=== PATIENT | female | born 1955 | race Caucasian/White ===

== ENCOUNTER 2018-07-20 10:03 | Emergency (ER) | payer MEDICARE, OTHER ==
[~2018-07-20] VITALS: Ht 160 cm; Wt 98.0 kg
[~2018-07-20 10:03] MED LIST: ASPIRIN325 PO; COLACE100 MG PO; FISH OIL 1,001000 M2 PO; HYDROCODONE-APA1 TA1 PO; LIDODERM 5%1 PATC1 TOP; MAGNESIUM OXID400 MG PO; NORVASC10 MG PO; OXYCODONE HCL5 M1 PO; PROTONIX40 M1 PO; SERTRALINE HCL50 MG PO; XARELTO10 MG PO; ZOCOR20 MG PO
[2018-07-20] MEDS ORDERED: PROBIOTIC1 EAC1 PO (10:15)
[2018-07-20] MEDS ORDERED: TUMERIC (10:15)
[2018-07-20] MEDS ORDERED: PREVICID (10:15)
[2018-07-20] MEDS ORDERED: VITAMINC500 PO (10:16)
[2018-07-20] MEDS ORDERED: VITAMIN B-12500 MCG PO (10:16)
[2018-07-20] MEDS ORDERED: VOLTAREN GEL 1100 G2 (10:16)
[2018-07-20 11:27] LABS: ABSOLUTE EOSINOPHILS 0.3 thou/uL (0.0-0.7); ABSOLUTE LYMPHOCYTES 2.1 thou/uL (0.8-5.3); ABSOLUTE MONOCYTES 1.1 thou/uL (0.0-1.2); BASOPHILS 0.2 %; EOSINOPHILS 2.2 %; HEMATOCRIT 43.2 % (37.0-47.0); HEMOGLOBIN 14.4 gm/dL (12.0-15.0); LYMPHOCYTES 15.3 %; MCH 30.6 pg (26.0-34.0); MCHC 33.3 g/dL (28.0-37.0); MCV 91.8 fL (80.0-100.0); MONOCYTES 8.5 %; MPV 9.7 fl. (7.2-11.1); NUCLEATED RBCS 0 /100WBC; PLATELET COUNT* 192 thou/uL (150-400); POLYS 73.8 %; RBC 4.71 mil/uL (4.20-5.00); RDW-CV 13.7 % (10.5-14.5); WBC 13.6 thou/uL (4.0-11.0)
[2018-07-20 11:36] LABS: CALCIUM 9.4 mg/dL (8.5-10.1); CREATININE 1.1 mg/dL (0.6-1.3); POTASSIUM 4.3 mmol/L (3.5-5.1)
[2018-07-20 11:40] LABS: ALBUMIN 3.3 g/dL (3.4-5.0); TOTAL BILIRUBIN 0.5 mg/dL (<0.1-1.0); TOTAL PROTEIN 6.6 g/dL (6.4-8.2)
[2018-07-20] MEDS ORDERED: LEVAQUIN 500 M500 MG PO (12:03)
[2018-07-20] MEDS ORDERED: ANTIVERT25 MG PO (12:03)
[2018-07-20 12:22] VITALS: BP 135/74
--- NOTE | 2018-07-20 14:13 | EKG ---
[place] [address] ELECTROCARDIOGRAM REPORT Name: TRINIDAD AMARAL Room: [facility]#: [id number] Admission: 07/20/18 Attend Phys: Discharge: 07/20/18 Date of : 57 Report #: [id number] THIS REPORT FOR: //name// [facility] ED Test Date: 2018-07-20 Test Time: 10:41:00 Pat Name: TRINIDAD AMARAL Department: Room: Gender: F Sales Support Associate: MARYELLEN : 1955 Requested By: Emili Gardner Order Number: [id number] MD: Zenon Finnegan Measurements Intervals [place] Rate: 90 P: 40 [place]: 143 QRS: -11 QRSD: 98 T: 64 QT: 355 QTc: 435 Interpretive Statements Sinus rhythm Multiple ventricular premature complexes Left ventricular hypertrophy Compared to ECG 03/17/2017 07:56:08 Ventricular premature complex(es) now present Left ventricular hypertrophy now present Electronically Signed On 07-20-2018 14:13:29 COAL INSPECTOR by Zenon Finnegan [email or web address] <ELECTRONICALLY SIGNED> By: Zenon Finnegan MD, [facility] 07/20/18 1413 1041 1041 Zenon Finnegan MD, [facility] /EPI
== END 2018-07-20 12:24 | disposition home or self-care (01) ==
LOC: M.ERS 10:03
PROVIDERS: Nurse Practitioner Family
DX: J18.8 Other pneumonia, unspecified organism (principal); I10 Essential (primary) hypertension; G25.81 Restless legs syndrome; F41.9 Anxiety disorder, unspecified; K21.9 Gastro-esophageal reflux disease without esophagitis; M79.7 Fibromyalgia; Z88.2 Allergy status to sulfonamides; Z88.5 Allergy status to narcotic agent; Z88.8 Allergy status to other drugs, medicaments and biological substances; Z98.890 Other specified postprocedural states; Z87.442 Personal history of urinary calculi; Z90.710 Acquired absence of both cervix and uterus; Z90.49 Acquired absence of other specified parts of digestive tract; Z96.659 Presence of unspecified artificial knee joint

== ENCOUNTER 2019-03-19 12:50 | Emergency (ER) | payer MEDICARE, OTHER ==
[~2019-03-19] VITALS: Ht 162.6 cm; Wt 81.7 kg
[~2019-03-19 12:50] MED LIST changes: +ANTIVERT25 MG PO; +LEVAQUIN 500 M500 MG PO; +PREVICID; +PROBIOTIC1 EAC1 PO; +TUMERIC; +VITAMIN B-12500 MCG PO; +VITAMINC500 PO; +VOLTAREN GEL 1100 G2
[2019-03-19] MEDS ORDERED: NORCO 5-325 TA1 EAC1 PO (13:59)
[2019-03-19] MEDS ORDERED: IBUPROFEN 800800 M1 PO (13:59)
[2019-03-19 14:26] VITALS: BP 162/63
== END 2019-03-19 14:27 | disposition home or self-care (01) ==
LOC: M.ERS 12:50
DX: S93.601A Unspecified sprain of right foot, initial encounter (principal); I10 Essential (primary) hypertension; K21.9 Gastro-esophageal reflux disease without esophagitis; M79.7 Fibromyalgia; G47.00 Insomnia, unspecified; F41.9 Anxiety disorder, unspecified; Z90.89 Acquired absence of other organs; Z98.890 Other specified postprocedural states; Z87.442 Personal history of urinary calculi; Z90.710 Acquired absence of both cervix and uterus; Z90.49 Acquired absence of other specified parts of digestive tract; Z96.659 Presence of unspecified artificial knee joint; Z88.1 Allergy status to other antibiotic agents; Z88.5 Allergy status to narcotic agent; Z88.2 Allergy status to sulfonamides; Z88.8 Allergy status to other drugs, medicaments and biological substances; W18.49XA Other slipping, tripping and stumbling without falling, initial encounter; Y93.01 Activity, walking, marching and hiking; Y92.89 Other specified places as the place of occurrence of the external cause; Y99.8 Other external cause status

== ENCOUNTER 2019-09-12 07:51 | Emergency (ER) | payer MEDICARE, OTHER ==
[~2019-09-12] VITALS: Ht 152.4 cm; Wt 90.7 kg
[~2019-09-12 07:51] MED LIST changes: +IBUPROFEN 800800 M1 PO; +NORCO 5-325 TA1 EAC1 PO
[2019-09-12 07:59] VITALS: BP 153/75
[2019-09-12] MEDS ORDERED: PREDNISONE 20 M20 M1 PO (08:32)
[2019-09-12] MEDS ORDERED: AUGMENTIN 875-1 EACH PO (08:32)
[2019-09-12 08:38] LABS: INFLUENZA A ANTIGEN Negative (Negative); INFLUENZA B ANTIGEN Negative (Negative)
== END 2019-09-12 08:37 | disposition home or self-care (01) ==
LOC: M.ERS 07:51
PROVIDERS: Family Medicine
DX: J40 Bronchitis, not specified as acute or chronic (principal); K21.9 Gastro-esophageal reflux disease without esophagitis; M79.7 Fibromyalgia; I10 Essential (primary) hypertension; G25.81 Restless legs syndrome; Z90.49 Acquired absence of other specified parts of digestive tract; Z90.710 Acquired absence of both cervix and uterus; Z98.890 Other specified postprocedural states; Z87.442 Personal history of urinary calculi; Z88.1 Allergy status to other antibiotic agents; Z88.5 Allergy status to narcotic agent; Z88.2 Allergy status to sulfonamides